=== PATIENT | male | born 1940 | race Caucasian/White ===

== ENCOUNTER 2019-05-05 06:35 | Inpatient (IN) | payer MEDICARE, BC ==
[2019-05-05] MEDS ORDERED: Sodium Chloride 0.9% 10 ML Syringe FLUSH PRN (07:13)
[2019-05-05] MEDS ORDERED: Sodium Chloride 0.9% 1,000 ML IV SCH (07:15)
--- NOTE | 2019-05-05 07:36 | EDM.PDOC ---
ED HPI GENERAL MEDICAL PROBLEM - General Chief Complaint: General Stated Complaint: fall Time Seen by Provider: 05/05/19 06:50 Source of Information: Reports: Patient, EMS Notes Reviewed, Family, RN History Limitations: Reports: Physical Impairment. 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 He lives with his . He has pain to the left ribs and left knee, no LOC, no shortness of breath, no fever, no chest pain. He does take Methotrexate, lisinopril, and carvedilol. He has his cardiology and rheumatology care at [facility]. He was filling up the bird feeders and slipped on some snow in the shop and felt himself falling and shifted so he would fall forward. States he did not hit his head. He was able to crawl and get up with use of the saw horse and then get into a chair with wheels and manuveur to get the phone and call his . He thought he would start feeling better after he rested. He did try some Tramadol last night and became nauseated. states he is dehydrated and hasn't ate very well. He did have Tylenol last night and this am. States no real pain, unless he tries to walk or lift the leg and then the pain is in the knee. No history of hip or knee replacements. He is alert, oriented, [place] and no acute distress. Left Knee Pain Score (Numeric/FACES): 3 - Related Data Allergies Allergy/AdvReac Type Severity Reaction Status Date / Time No Known Allergies Allergy Verified 05/05/19 08:24 Home Meds: Home Meds Calcium Carbonate/Vitamin D3 [Calcium 500 + Vit D Caplet] 600 mg PO DAILY [History] Cholecalciferol (Vitamin D3) [Vitamin D] 2,000 units PO DAILY 02/13/15 [History] Folic Acid 1 mg PO DAILY 02/13/15 [History] Methotrexate 1 gm IM WEEKLY 02/13/15 [History] Zoledronic Acid in Water [Reclast] 5 mg IV ASDIRECTED 02/13/15 [History] Furosemide [Lasix] 40 mg PO DAILY 05/05/19 [History] Umeclidinium Brm/Vilanterol Tr [Anoro Ellipta 62.5-25 MCG] 1 each IH DAILY 05/05 [History] carvediloL [Carvedilol] 3.125 mg PO BID 05/05/19 [History] lisinopriL [Lisinopril] 2.5 mg PO BID 05/05/19 [History] Past Medical History Other HEENT History: right eye articicial lens, cataract left. start of macular degeneration Cardiovascular History: Reports: Pacemaker Respiratory History: Reports: COPD, Other (See Below) Other Respiratory History: beginning emphysema Musculoskeletal History: Reports: Back Pain, Chronic, Other (See Below) Other Musculoskeletal History: right hand 4 joints replaced, rheumatoid arthritis Other Psychiatric History: hxx of ETOH, stopped 41 years ago Endocrine/Metabolic History: Reports: Osteoporosis Hematologic History: Reports: Other (See Below) Other Hematologic History: brusising from medication methotrexate Oncologic (Cancer) History: Reports: None Dermatologic History: Reports: Other (See Below) Other Dermatologic History: bruising reaction from medication (methotrexate) - Past Surgical History Cardiovascular Surgical History: Reports: Pacer Other Endocrine Surgeries/Procedures: Bone density: scheduled for a DEXA scan in one month Other Musculoskeletal Surgeries/Procedures:: fractured pelvis Dermatological Surgical History: Reports: None ED ROS GENERAL - Review of Systems Review Of Systems: See Below Constitutional: Reports: Weakness, Decreased Appetite. Denies: Fever, Chills HEENT: Reports: Hearing Loss. Denies: Ear Pain, Vision Change Respiratory: Denies: Shortness of Breath, Wheezing, Pleuritic Chest Pain Cardiovascular: Denies: Chest Pain, Edema, Lightheadedness GI/Abdominal: Reports: Decreased Appetite. Denies: Abdominal Pain, Diarrhea : Denies: Dysuria, Flank Pain, Incontinence Musculoskeletal: Reports: Other (knee pain and rib pain) Skin: Denies: Rash, Wound Neurological: Reports: Difficulty Walking, Weakness. Denies: Confusion, Headache Psychiatric: Denies: Agitation, Anxiety, Confusion ED EXAM, GENERAL - Physical Exam Exam: See Below Exam Limited By: Physical Impairment General Appearance: Alert, No Apparent Distress Ears: Hearing Loss Nose: Normal Inspection, Normal Mucosa Throat/Mouth: Normal Voice, No Airway Compromise Head: Atraumatic, Normocephalic Neck: Supple, Non-Tender Respiratory/Chest: Decreased Breath Sounds. No: Rhonchi, Wheezing Cardiovascular: Regular Rate, Rhythm, No Edema GI/Abdominal: Normal Bowel Sounds, Soft, Non-Tender Extremities: No Pedal Edema, Limited Range of Motion, Other (left knee pain, left rib pain. Mild swelling to knee, no bruising noted.) Neurological: Alert, Oriented, Normal Cognition Psychiatric: Normal Affect, Normal Mood Skin Exam: Warm, Dry, Normal Color Course - Vital Signs Last Recorded V/S: Last Vital Signs Temp 97.5 F 05/05/19 09:35 Pulse 57 L 05/05/19 09:35 Resp 18 05/05/19 09:35 BP 99/65 05/05/19 09:35 Pulse Ox 91 L 05/05/19 09:35 - Orders/Labs/Meds Orders: Active Orders 24 hr Category Date Time Status Admission Diagnosis [ADT] Routine ADT 05/05/19 09:39 Ordered Patient Status [ADT] Routine ADT 05/05/19 09:41 Active Oxygen Therapy Adult [Oxygen Therapy] [RC] ASDIRECTED Care 05/05/19 07:14 Active Regular Diet [DIET] Diet 05/05/19 Lunch Ordered CULTURE MRSA SURVEY [RM] Stat Lab 05/05/19 09:38 Ordered Calcium Carbonate/Vitamin D3 [Calcium 500 + Vit D Med 05/05/19 20:00 Ordered Caplet] 600 mg PO DAILY Cholecalciferol (Vitamin D3) [Vitamin D3] Med 05/05/19 20:00 Ordered 2,000 unit PO DAILY Folic Acid Med 05/05/19 20:00 Ordered 1 mg PO DAILY Furosemide [Lasix] Med 05/06/19 08:00 Ordered 40 mg PO DAILY Piperacillin/Tazobactam [Zosyn] 4.5 gm Med 05/05/19 09:30 Ordered Sodium Chloride 0.9% [Normal Saline] 100 ml IV Q6H Sodium Chloride 0.9% [Normal Saline] 1,000 ml Med 05/05/19 07:15 Active IV ASDIRECTED Sodium Chloride 0.9% [Saline Flush] Med 05/05/19 07:13 Active 10 ml FLUSH ASDIRECTED PRN Umeclidinium Brm/Vilanterol Tr [Anoro Ellipta 62.5-25 Med 05/05/19 09:30 Ordered MCG] 1 each IH DAILY carvediloL [Coreg] Med 05/05/19 09:30 Ordered 3.125 mg PO BID lisinopriL [Prinivil] Med 05/05/19 09:30 Ordered 2.5 mg PO BID Saline Lock Insert [OM.PC] Routine Oth 05/05/19 07:13 Ordered Code Status [Resuscitation Status] Stat Resus Stat 05/05/19 09:45 Ordered Medication Orders Carvedilol (Coreg) 3.125 mg PO BID [facility] Cholecalciferol (Vitamin D3) 2,000 unit PO DAILY [facility] Folic Acid (Folic Acid) 1 mg PO DAILY [facility] Furosemide (Lasix) 40 mg PO DAILY [facility] Sodium Chloride (Normal Saline) 1,000 mls @ 75 mls/hr IV ASDIRECTED [facility] Last Admin: 05/05/19 07:50 Dose: 75 mls/hr Piperacillin Sod/Tazobactam (Sod 4.5 gm/ Sodium Chloride) 100 mls @ 200 mls/hr IV Q6H [facility] Lisinopril (Prinivil) 2.5 mg PO BID [facility] Non-Formulary Medication (Calcium Carbonate/Vitamin D3 [Calcium 500 + Vit D Caplet]) 600 mg PO DAILY [facility] Non-Formulary Medication (Umeclidinium Brm/Vilanterol Tr [Anoro Ellipta 62.5-25 Mcg]) 1 each IH DAILY [facility] Sodium Chloride (Saline Flush) 10 ml FLUSH ASDIRECTED PRN PRN Reason: Keep Vein Open Labs: Laboratory Tests 05/05/19 05/05/19 05/05/19 Range/Units 07:15 07:15 08:19 WBC 17.3 H D (4.0-11.0) K/uL RBC 4.42 L (4.50-6.50) M/uL Hgb 12.9 L (13.0-18.0) g/dL Hct 37.4 L (40.0-54.0) % MCV 85 (76-96) fL MCH 29.2 (27.0-32.0) pg MCHC 34.5 (31.0-35.0) g/dL RDW 15.0 (11.0-16.0) % Plt Count 89 L D (150-400) K/uL MPV 11.7 H (6.0-10.0) fL Neut % (Auto) 86.5 H (45.0-70.0) % Lymph % (Auto) 2.3 L (20.0-40.0) % [place] % (Auto) 11.1 H (3.0-10.0) % Eos % (Auto) 0.0 L (1.0-5.0) % Baso % (Auto) 0.1 (0.0-0.5) % Neut # (Auto) 14.96 H (2.00-7.50) K/uL Lymph # (Auto) 0.39 L (1.50-4.00) K/uL [place]Brien # (Auto) 1.91 H (0.20-0.80) K/uL Eos # (Auto) 0.00 L (0.04-0.40) K/uL Baso # (Auto) 0.02 (0.02-0.10) K/uL Sodium 130 L (136-145) mmol/L Potassium 4.6 (3.5-5.1) mmol/L Chloride 94 L (98-107) mmol/L Carbon Dioxide 26.0 (21.0-32.0) mmol/L Anion Gap 14.6 (5.0-15.0) mmol/L BUN 22 D (8-26) mg/dL Creatinine 1.38 H D (0.70-1.30) mg/dL Est Cr Clr Drug Dosing 40.47 mL/min Estimated GFR (MDRD) 50 L (>60) MLS/MIN BUN/Creatinine Ratio 15.9 (6-25) Glucose 135 H (74-100) mg/dL Lactic Acid (0.90-1.70) mmol/L Calcium 8.3 L (8.5-10.1) mg/dL Urine Color Yellow Urine Appearance Clear (CLEAR) Urine pH 5.5 (5.0-8.0) Ur Specific [place] 1.020 (1.003-1.030) Urine Protein 30 H (NEGATIVE) mg/dL Urine Glucose (UA) Negative (NEGATIVE) mg/dL Urine Ketones Trace H (NEGATIVE) mg/dL Urine Occult Blood Negative (NEGATIVE) Urine Nitrite Negative (NEGATIVE) Urine Bilirubin Moderate H (NEGATIVE) Urine Urobilinogen 1.0 (0.2-1.0) E.U./dL Ur Leukocyte Esterase Negative (NEGATIVE) Urine RBC Not seen /HPF Urine WBC 0-5 H /HPF Ur Squamous Epith Cells Few /HPF Uric Acid Crystals Few /HPF Urine Bacteria Not seen /HPF 05/05/19 Range/Units 08:45 WBC (4.0-11.0) K/uL RBC (4.50-6.50) M/uL Hgb (13.0-18.0) g/dL Hct (40.0-54.0) % MCV (76-96) fL MCH (27.0-32.0) pg MCHC (31.0-35.0) g/dL RDW (11.0-16.0) % Plt Count (150-400) K/uL MPV (6.0-10.0) fL Neut % (Auto) (45.0-70.0) % Lymph % (Auto) (20.0-40.0) % [place] % (Auto) (3.0-10.0) % Eos % (Auto) (1.0-5.0) % Baso % (Auto) (0.0-0.5) % Neut # (Auto) (2.00-7.50) K/uL Lymph # (Auto) (1.50-4.00) K/uL [place] # (Auto) (0.20-0.80) K/uL Eos # (Auto) (0.04-0.40) K/uL Baso # (Auto) (0.02-0.10) K/uL Sodium (136-145) mmol/L Potassium (3.5-5.1) mmol/L Chloride (98-107) mmol/L Carbon Dioxide (21.0-32.0) mmol/L Anion Gap (5.0-15.0) mmol/L BUN (8-26) mg/dL Creatinine (0.70-1.30) mg/dL Est Cr Clr Drug Dosing mL/min Estimated GFR (MDRD) (>60) MLS/MIN BUN/Creatinine Ratio (6-25) Glucose (74-100) mg/dL Lactic Acid 2.08 H (0.90-1.70) mmol/L Calcium (8.5-10.1) mg/dL Urine Color Urine Appearance (CLEAR) Urine pH (5.0-8.0) Ur Specific [place] (1.003-1.030) Urine Protein (NEGATIVE) mg/dL Urine Glucose (UA) (NEGATIVE) mg/dL Urine Ketones (NEGATIVE) mg/dL Urine Occult Blood (NEGATIVE) Urine Nitrite (NEGATIVE) Urine Bilirubin (NEGATIVE) Urine Urobilinogen (0.2-1.0) E.U./dL Ur Leukocyte Esterase (NEGATIVE) Urine RBC /HPF Urine WBC /HPF Ur Squamous Epith Cells /HPF Uric Acid Crystals /HPF Urine Bacteria /HPF Meds: Medications Generic Name Dose Route Start Last Admin Trade Name Freq PRN Reason Stop Dose Admin Carvedilol 3.125 mg 05/05/19 09:30 Coreg PO BID [facility] Cholecalciferol 2,000 unit 05/05/19 20:00 Vitamin D3 PO DAILY [facility] Folic Acid 1 mg 05/05/19 20:00 Folic Acid PO DAILY [facility] Furosemide 40 mg 05/06/19 08:00 Lasix PO DAILY [facility] Sodium Chloride 1,000 mls @ 75 mls/hr 05/05/19 07:15 05/05/19 07:50 Normal Saline IV 75 mls/hr ASDIRECTED [facility] Administration Piperacillin Sod/Tazobactam 100 mls @ 200 mls/hr 05/05/19 09:30 Sod 4.5 gm/ Sodium Chloride IV Q6H [facility] Lisinopril 2.5 mg 05/05/19 09:30 Prinivil PO BID [facility] Non-Formulary Medication 600 mg 05/05/19 20:00 Calcium Carbonate/Vitamin D3 [Calcium 500 + Vit D Caplet] PO DAILY [facility] Non-Formulary Medication 1 each 05/05/19 09:30 Umeclidinium Brm/Vilanterol Tr [Anoro Ellipta 62.5-25 Mcg] IH DAILY [facility] Sodium Chloride 10 ml 05/05/19 07:13 Saline Flush FLUSH ASDIRECTED PRN Keep Vein Open - Re-Assessments/Exams Free Text/Narrative Re-Assessment/Exam: 05/05/19 09:32 Labs reviewed, Lactic acid is 2.08, WBC 17 and neutr 86%. No fracture noted, radiology read is pending. IV fluids started and Zosyn IV started. Will admit post fall, severe emphysema, No UTI noted, lower respiratory infection, knee strain, CHF and RA. Departure - Departure Time of Disposition: 09:35 Disposition: Admitted As Inpatient 66 Condition: Good Clinical Impression: Lower respiratory infection (e.g., bronchitis, pneumonia, pneumonitis, pulmonitis) - Discharge Information *PRESCRIPTION DRUG MONITORING PROGRAM REVIEWED*: Not Applicable *COPY OF PRESCRIPTION DRUG MONITORING REPORT IN PATIENT MELVINA: Not Applicable Referrals: PCP,None [Primary Care Provider] - Forms: ED Department Discharge Sepsis Event Note - Focused Exam Vital Signs: Vital Signs Temp Pulse Resp BP Pulse Ox 05/05/19 09:35 97.5 F 57 L 18 99/65 91 L 05/05/19 09:10 96.7 F 80 105/56 L 92 L 05/05/19 09:00 53 L 18 97/60 91 L 05/05/19 08:47 97.7 F 81 16 93/63 94 L 05/05/19 08:34 88 18 100/60 95 05/05/19 08:21 53 L 18 102/57 L 92 L 05/05/19 08:16 97.8 F 88 18 99/32 L 91 L 05/05/19 08:14 83 18 99/32 L 90 L 05/05/19 07:39 89 97/66 05/05/19 07:05 91 L 05/05/19 07:01 97.4 F 88 18 95/57 L 89 L 05/05/19 06:48 97.4 F 88 18 95/57 L 83 L Date Exam was Performed: 05/05/19 Time Exam was Performed: 10:40 - Problem List & Annotations (1) Lower respiratory infection (e.g., bronchitis, pneumonia, pneumonitis, pulmonitis) SNOMED Code(s): 58190689 Code(s): J22 - UNSPECIFIED ACUTE LOWER RESPIRATORY INFECTION Status: Acute Current Visit: Yes (2) CHF (congestive heart failure) SNOMED Code(s): 24761006 Code(s): I50.9 - HEART FAILURE, UNSPECIFIED Status: Chronic Current Visit : Yes Qualifiers: Heart failure type: combined systolic and diastolic (3) Rheumatoid arthritis in remission SNOMED Code(s): 804682624467907 Code(s): M06.9 - RHEUMATOID ARTHRITIS, UNSPECIFIED Status: Chronic Current Visit: Yes (4) Emphysema of lung SNOMED Code(s): 23418624 Code(s): J43.9 - EMPHYSEMA, UNSPECIFIED Status: Chronic Current Visit: Yes (5) Effusion, left knee SNOMED Code(s): 636127191526811 Code(s): M25.462 - EFFUSION, LEFT KNEE Status: Acute Current Visit: Yes (6) Osteoporosis SNOMED Code(s): 23653498 Code(s): M81.0 - AGE-RELATED OSTEOPOROSIS W/O CURRENT PATHOLOGICAL FRACTURE Status: Chronic Current Visit: Yes (7) Fall at home SNOMED Code(s): 58259438 Code(s): W19.XXXA - UNSPECIFIED FALL, INITIAL ENCOUNTER; Y92.009 - UNSP PLACE IN UNSP [facility] Status: Acute Current Visit: Yes (8) Rib fracture SNOMED Code(s): 72831008 Code(s): S22.39XA - FRACTURE OF ONE RIB, UNSP SIDE, INIT FOR CLOS FX Status : Acute Current Visit: Yes - Problem List Review Problem List Initiated/Reviewed/Updated: Yes - My Orders Last 24 Hours: My Active Orders 05/05/19 07:13 Sodium Chloride 0.9% [Saline Flush] 10 ml FLUSH ASDIRECTED PRN Saline Lock Insert [OM.PC] Routine 05/05/19 07:14 Oxygen Therapy Adult [Oxygen Therapy] [RC] ASDIRECTED 05/05/19 07:15 Sodium Chloride 0.9% [Normal Saline] 1,000 ml IV ASDIRECTED 05/05/19 09:30 Piperacillin/Tazobactam [Zosyn] 4.5 gm Sodium Chloride 0.9% [Normal Saline] 100 ml IV Q6H Umeclidinium Brm/Vilanterol Tr [Anoro Ellipta 62.5-25 MCG] 1 each IH DAILY carvediloL [Coreg] 3.125 mg PO BID lisinopriL [Prinivil] 2.5 mg PO BID 05/05/19 09:38 CULTURE MRSA SURVEY [RM] Stat 05/05/19 09:39 Admission Diagnosis [ADT] Routine 05/05/19 09:41 Patient Status [ADT] Routine 05/05/19 09:45 Code Status [Resuscitation Status] Stat 05/05/19 20:00 Calcium Carbonate/Vitamin D3 [Calcium 500 + Vit D Caplet] 600 mg PO DAILY Cholecalciferol (Vitamin D3) [Vitamin D3] 2,000 unit PO DAILY Folic Acid 1 mg PO DAILY 05/05/19 Lunch Regular Diet [DIET] 05/06/19 08:00 Furosemide [Lasix] 40 mg PO DAILY - Assessment/Plan Last 24 Hours: My Active Orders 05/05/19 07:13 Sodium Chloride 0.9% [Saline Flush] 10 ml FLUSH ASDIRECTED PRN Saline Lock Insert [OM.PC] Routine 05/05/19 07:14 Oxygen Therapy Adult [Oxygen Therapy] [RC] ASDIRECTED 05/05/19 07:15 Sodium Chloride 0.9% [Normal Saline] 1,000 ml IV ASDIRECTED 05/05/19 09:30 Piperacillin/Tazobactam [Zosyn] 4.5 gm Sodium Chloride 0.9% [Normal Saline] 100 ml IV Q6H Umeclidinium Brm/Vilanterol Tr [Anoro Ellipta 62.5-25 MCG] 1 each IH DAILY carvediloL [Coreg] 3.125 mg PO BID lisinopriL [Prinivil] 2.5 mg PO BID 05/05/19 09:38 CULTURE MRSA SURVEY [RM] Stat 05/05/19 09:39 Admission Diagnosis [ADT] Routine 05/05/19 09:41 Patient Status [ADT] Routine 05/05/19 09:45 Code Status [Resuscitation Status] Stat 05/05/19 20:00 Calcium Carbonate/Vitamin D3 [Calcium 500 + Vit D Caplet] 600 mg PO DAILY Cholecalciferol (Vitamin D3) [Vitamin D3] 2,000 unit PO DAILY Folic Acid 1 mg PO DAILY 05/05/19 Lunch Regular Diet [DIET] 05/06/19 08:00 Furosemide [Lasix] 40 mg PO DAILY Plan: Admit with lower respiratory tract infection, chronic emphysema, chronic RA, chronic CHF with pacer. Will treat with Zosyn q 6 hour, home medication, AARON, VS q 4 hour. Assist with cares as hx of osteoporosis, recent fall and left knee pain and left fifth rib nondisplaced fracture.
[2019-05-05] MEDS ORDERED: Lisinopril 2.5 MG Tab PO SCH (09:30)
[2019-05-05] MEDS ORDERED: Carvedilol 3.125 MG Tab PO SCH (09:30)
[2019-05-05] MEDS ORDERED: Piperacillin/Tazobactam 4.5 GM in Sodium Chloride 0.9% 100 ML IV SCH ×2 (09:30→11:37)
[2019-05-05] MEDS ORDERED: Non-Formulary Medication 1 Each (Umeclidinium Brm/Vilanterol Tr [Anoro Ellipta 62.5-25 Mcg IH SCH (09:30)
--- NOTE | 2019-05-05 10:03 | CR ---
Date of Service: 05/05/19 Clinical Data: fall at home LEFT KNEE: Comparison is made to a prior exam dated 11/2014. There are tricompartment osteoarthritic changes in the knee joint with narrowing of the medial and lateral compartment joint spaces. There is a moderate size joint effusion. No acute abnormalities. There are vascular calcifications in the soft tissues. [id number] MTDD
--- NOTE | 2019-05-05 10:08 | CR ---
Date of Service: 05/05/19 Clinical Data: fall at home, pain to ribs AP CHEST AND LEFT RIBS: Comparison made to a prior chest x-ray dated 02/2015. The cardiac pacer and pacer wires remain unchanged in position. The heart size is within normal limits. The aorta is calcified and ectatic. There are interstitial infiltrates throughout both lungs with progression from the prior exam. There are atelectatic/fibrotic changes in both lung bases. No pneumothorax. No pleural effusions. There are multiple healed rib fractures on the right. No acute displaced left rib fractures. There is degenerative disk disease throughout the thoracic spine. Left fifth rib anterior suspicious for a nondisplaced fracture. [id number] [facility]
[2019-05-05] MEDS ORDERED: Ondansetron 4 MG/2 ML SDV IVPUSH PRN (14:06)
[2019-05-05] MEDS ORDERED: Azithromycin 500 MG in Sodium Chloride 0.9% 250 ML IV SCH (15:00)
[2019-05-05] MEDS ORDERED: cefTRIAXone 1 GM in Sodium Chloride 0.9% 50 ML IV SCH (15:15)
[2019-05-05 16:06] VITALS: BP 118/77; PULSE 87
[2019-05-05] MEDS ORDERED: Azithromycin 500 MG Vial ONE (16:32)
--- NOTE | 2019-05-05 17:10 | PCM.DCSUM1 ---
Discharge Summary - Hospital Course HPI Initial Comments: 78 yo male fell at home last night and presented to ER today per EMS as he couldn't get up from the chair. X-rays completed and labs, no fracture to left knee, nondisplace left 5th rib fracture and lower respiratory infiltrates, with hx of emphysema, hx of CHF, Hx of RA and dual pacemaker. Pt receives his care at [facility] in [place] and minimal records at this facility. Pt was admitted to this facility, had an episode of nausea and loose BM and hypotension. EKG with possible septal infarct and elevated troponin. Notified of change in pt condition and elevation of labs. would like to have pt transferred to [facility]. Contact with one call [facility] and discussion with Dr Espinoza, cardiology and hospitalist and accepting pt for transfer. Pt does receive cardiology, PCP and hospital intern visits at [facility]. Diagnosis: Stroke: No - Discharge Data Discharge Date: 05/05/19 Discharge Disposition: DC/Tfer to Other 70 Condition: Good - Referral to Home Health Primary Care Physician: PCP None - Discharge Diagnosis/Problem(s) (1) Lower respiratory infection (e.g., bronchitis, pneumonia, pneumonitis, pulmonitis) SNOMED Code(s): 54919120 ICD Code: J22 - UNSPECIFIED ACUTE LOWER RESPIRATORY INFECTION Status: Acute Current Visit: Yes (2) CHF (congestive heart failure) SNOMED Code(s): 23899235 ICD Code: I50.9 - HEART FAILURE, UNSPECIFIED Status: Chronic Current Visit: Yes Qualifiers: Heart failure type: combined systolic and diastolic (3) Rheumatoid arthritis in remission SNOMED Code(s): 888041166471221 ICD Code: M06.9 - RHEUMATOID ARTHRITIS, UNSPECIFIED Status: Chronic Current Visit: Yes (4) Emphysema of lung SNOMED Code(s): 46108272 ICD Code: J43.9 - EMPHYSEMA, UNSPECIFIED Status: Chronic Current Visit: Yes (5) Effusion, left knee SNOMED Code(s): 542256080043927 ICD Code: M25.462 - EFFUSION, LEFT KNEE Status: Acute Current Visit: Yes (6) Osteoporosis SNOMED Code(s): 52215223 ICD Code: M81.0 - AGE-RELATED OSTEOPOROSIS W/O CURRENT PATHOLOGICAL FRACTURE Status: Chronic Current Visit: Yes (7) Fall at home SNOMED Code(s): 24151891 ICD Code: W19.XXXA - UNSPECIFIED FALL, INITIAL ENCOUNTER; Y92.009 - UNSP PLACE IN UNSP NON-INSTITUT (PRIVATE) RESIDENCE PLACE Status: Acute Current Visit: Yes (8) Rib fracture SNOMED Code(s): 59978163 ICD Code: S22.39XA - FRACTURE OF ONE RIB, UNSP SIDE, INIT FOR CLOS FX Status: Acute Current Visit: Yes (9) ACS (acute coronary syndrome) SNOMED Code(s): 841481613 ICD Code: I24.9 - ACUTE ISCHEMIC HEART DISEASE, UNSPECIFIED Status: Acute Current Visit: Yes - Discharge Plan *PRESCRIPTION DRUG MONITORING PROGRAM REVIEWED*: Not Applicable *COPY OF PRESCRIPTION DRUG MONITORING REPORT IN PATIENT MELVINA: Not Applicable Home Medications: Home Meds Calcium Carbonate/Vitamin D3 [Calcium 500 + Vit D Caplet] 600 mg PO DAILY [History] Cholecalciferol (Vitamin D3) [Vitamin D] 2,000 units PO DAILY 02/13/15 [History] Folic Acid 1 mg PO DAILY 02/13/15 [History] Methotrexate 1 gm IM WEEKLY 02/13/15 [History] Zoledronic Acid in Water [Reclast] 5 mg IV ASDIRECTED 02/13/15 [History] Furosemide [Lasix] 40 mg PO DAILY 05/05/19 [History] Umeclidinium Brm/Vilanterol Tr [Anoro Ellipta 62.5-25 MCG] 1 each IH DAILY 05/05 [History] carvediloL [Carvedilol] 3.125 mg PO BID 05/05/19 [History] lisinopriL [Lisinopril] 2.5 mg PO BID 05/05/19 [History] Oxygen Therapy Mode: Nasal Cannula Forms: ED Department Discharge Referrals: PCP,None [Primary Care Provider] - - Discharge Summary/Plan Comment DC Time >30 min.: Yes Discharge Summary/Plan Comment: Counseled on ACS and change in Troponin and EKG change with possible septal infarct. Pt is alert, no acute distress, having some shortness of breath and oxygen per N/C with 2-3 lpm, campus monitor, no chest pain at this time. Acute lower respiratory infection, with elevated WBC and elevated lactic, Dual pace maker, hx of emphysema, RA, osteoporosis, and CHF. Will transfer to [facility] for hospitalist and cardiology. - General Info Date of Service: 05/05/19 Functional Status: Reports: Pain Controlled, Tolerating Diet, Urinating, Incentive Spirometry. Denies: Ambulating - Review of Systems General: Reports: Weakness. Denies: Fever, Chills HEENT: Denies: Headaches, Sore Throat, Visual Changes Pulmonary: Reports: Shortness of Breath. Denies: Cough, Sputum Cardiovascular: Reports: Dyspnea on Exertion. Denies: Chest Pain, Edema Gastrointestinal: Reports: Decreased Appetite, Nausea. Denies: Abdominal Pain Genitourinary: Reports: No Symptoms Musculoskeletal: Reports: Other (RA, osteoporosis, left knee pain, left rib pain ) Skin: Reports: No Symptoms Neurological: Reports: No Symptoms Psychiatric: Reports: No Symptoms - Patient Data Vitals - Most Recent: Last Vital Signs Temp 98.6 F 05/05/19 16:00 Pulse 87 05/05/19 16:00 Resp 16 05/05/19 16:00 BP 118/77 05/05/19 16:00 Pulse Ox 91 L 05/05/19 09:35 Weight - Most Recent: 143 lb Lab Results - Last 24 hrs: Laboratory Results - last 24 hr 05/05/19 05/05/19 05/05/19 Range/Units 07:15 07:15 08:19 WBC 17.3 H D (4.0-11.0) K/uL RBC 4.42 L (4.50-6.50) M/uL Hgb 12.9 L (13.0-18.0) g/dL Hct 37.4 L (40.0-54.0) % MCV 85 (76-96) fL MCH 29.2 (27.0-32.0) pg MCHC 34.5 (31.0-35.0) g/dL RDW 15.0 (11.0-16.0) % Plt Count 89 L D (150-400) K/uL MPV 11.7 H (6.0-10.0) fL Neut % (Auto) 86.5 H (45.0-70.0) % Lymph % (Auto) 2.3 L (20.0-40.0) % [place] % (Auto) 11.1 H (3.0-10.0) % Eos % (Auto) 0.0 L (1.0-5.0) % Baso % (Auto) 0.1 (0.0-0.5) % Neut # (Auto) 14.96 H (2.00-7.50) K/uL Lymph # (Auto) 0.39 L (1.50-4.00) K/uL [place] # (Auto) 1.91 H (0.20-0.80) K/uL Eos # (Auto) 0.00 L (0.04-0.40) K/uL Baso # (Auto) 0.02 (0.02-0.10) K/uL Sodium 130 L (136-145) mmol/L Potassium 4.6 (3.5-5.1) mmol/L Chloride 94 L (98-107) mmol/L Carbon Dioxide 26.0 (21.0-32.0) mmol/L Anion Gap 14.6 (5.0-15.0) mmol/L BUN 22 D (8-26) mg/dL Creatinine 1.38 H D (0.70-1.30) mg/dL Est Cr Clr Drug Dosing 40.47 mL/min Estimated GFR (MDRD) 50 L (>60) MLS/MIN BUN/Creatinine Ratio 15.9 (6-25) Glucose 135 H (74-100) mg/dL Lactic Acid (0.90-1.70) mmol/L Calcium 8.3 L (8.5-10.1) mg/dL Troponin I (0.000-0.060) ng/mL Urine Color Yellow Urine Appearance Clear (CLEAR) Urine pH 5.5 (5.0-8.0) Ur Specific Morgan 1.020 (1.003-1.030) Urine Protein 30 H (NEGATIVE) mg/dL Urine Glucose (UA) Negative (NEGATIVE) mg/dL Urine Ketones Trace H (NEGATIVE) mg/dL Urine Occult Blood Negative (NEGATIVE) Urine Nitrite Negative (NEGATIVE) Urine Bilirubin Moderate H (NEGATIVE) Urine Urobilinogen 1.0 (0.2-1.0) E.U./dL Ur Leukocyte Esterase Negative (NEGATIVE) Urine RBC Not seen /HPF Urine WBC 0-5 H /HPF Ur Squamous Epith Cells Few /HPF Uric Acid Crystals Few /HPF Urine Bacteria Not seen /HPF 05/05/19 05/05/19 Range/Units 08:45 14:45 WBC (4.0-11.0) K/uL RBC (4.50-6.50) M/uL Hgb (13.0-18.0) g/dL Hct (40.0-54.0) % MCV (76-96) fL MCH (27.0-32.0) pg MCHC (31.0-35.0) g/dL RDW (11.0-16.0) % Plt Count (150-400) K/uL MPV (6.0-10.0) fL Neut % (Auto) (45.0-70.0) % Lymph % (Auto) (20.0-40.0) % [place] % (Auto) (3.0-10.0) % Eos % (Auto) (1.0-5.0) % Baso % (Auto) (0.0-0.5) % Neut # (Auto) (2.00-7.50) K/uL Lymph # (Auto) (1.50-4.00) K/uL [place] # (Auto) (0.20-0.80) K/uL Eos # (Auto) (0.04-0.40) K/uL Baso # (Auto) (0.02-0.10) K/uL Sodium (136-145) mmol/L Potassium (3.5-5.1) mmol/L Chloride (98-107) mmol/L Carbon Dioxide (21.0-32.0) mmol/L Anion Gap (5.0-15.0) mmol/L BUN (8-26) mg/dL Creatinine (0.70-1.30) mg/dL Est Cr Clr Drug Dosing mL/min Estimated GFR (MDRD) (>60) MLS/MIN BUN/Creatinine Ratio (6-25) Glucose (74-100) mg/dL Lactic Acid 2.08 H (0.90-1.70) mmol/L Calcium (8.5-10.1) mg/dL Troponin I 0.095 H* (0.000-0.060) ng/mL Urine Color Urine Appearance (CLEAR) Urine pH (5.0-8.0) Ur Specific Morgan (1.003-1.030) Urine Protein (NEGATIVE) mg/dL Urine Glucose (UA) (NEGATIVE) mg/dL Urine Ketones (NEGATIVE) mg/dL Urine Occult Blood (NEGATIVE) Urine Nitrite (NEGATIVE) Urine Bilirubin (NEGATIVE) Urine Urobilinogen (0.2-1.0) E.U./dL Ur Leukocyte Esterase (NEGATIVE) Urine RBC /HPF Urine WBC /HPF Ur Squamous Epith Cells /HPF Uric Acid Crystals /HPF Urine Bacteria /HPF SONG Results - Last 24 hrs: Microbiology 05/05/19 14:45 Influenza Type A Antigen Screen - Final Nasal, Unspecified NEGATIVE INFLUENZA A VIRUS AG REFERENCE RANGE: NEGATIVE Influenza Type B Antigen Screen - Final NEGATIVE INFLUENZA B VIRUS AG REFERENCE RANGE: NEGATIVE Med Orders - Current: Current Medications Calcium Carbonate (Caltrate 600+D 1500 Mg-400 Units) 1 tab PO DAILY [facility] Carvedilol (Coreg) 3.125 mg PO BID [facility] Last Admin: 05/05/19 12:04 Dose: Not Given Cholecalciferol (Vitamin D3) 2,000 unit PO DAILY [facility] Folic Acid (Folic Acid) 1 mg PO DAILY [facility] Furosemide (Lasix) 40 mg PO DAILY [facility] Sodium Chloride (Normal Saline) 1,000 mls @ 75 mls/hr IV ASDIRECTED [facility] Last Admin: 05/05/19 07:50 Dose: 75 mls/hr Ceftriaxone Sodium 1 gm/ (Sodium Chloride) 50 mls @ 100 mls/hr IV Q24H [facility] Stop: 05/09/19 23:59 Last Admin: 05/05/19 16:38 Dose: 100 mls/hr Azithromycin 500 mg/ Sodium (Chloride) 250 mls @ 250 mls/hr IV DAILY@1500 [facility] Lisinopril (Prinivil) 2.5 mg PO BID [facility] Last Admin: 05/05/19 12:05 Dose: Not Given Non-Formulary Medication (Umeclidinium Brm/Vilanterol Tr [Anoro Ellipta 62.5-25 Mcg]) 1 each IH DAILY [facility] Last Admin: 05/05/19 14:46 Dose: Not Given Ondansetron HCl (Zofran) 4 mg IVPUSH Q8H PRN PRN Reason: Nausea/Vomiting Last Admin: 05/05/19 14:11 Dose: 4 mg Sodium Chloride (Saline Flush) 10 ml FLUSH ASDIRECTED PRN PRN Reason: Keep Vein Open Discontinued Medications Azithromycin (Zithromax) Confirm Administered Dose 500 mg .ROUTE .STK-MED ONE Stop: 05/05/19 16:33 Piperacillin Sod/Tazobactam (Sod 4.5 gm/ Sodium Chloride) 100 mls @ 200 mls/hr IV Q6H [facility] Piperacillin Sod/Tazobactam (Sod 4.5 gm/ Sodium Chloride) 100 mls @ 200 mls/hr IV Q6H [facility] Last Admin: 05/05/19 12:03 Dose: 200 mls/hr - Exam Quality Assessment: Reports: Supplemental Oxygen General: Reports: Alert, Oriented, Cooperative, No Acute Distress HEENT: Reports: Pupils Reactive, Mucous Membr. Moist/[place] Neck: Reports: Supple, Trachea Midline Lungs: Reports: Normal Respiratory Effort, Decreased Breath Sounds, Rhonchi Cardiovascular: Reports: Irregular Rhythm GI/Abdominal Exam: Normal Bowel Sounds, Soft, Non-Tender Extremities: Limited Range of Motion, Other (severe RA) Skin: Reports: Warm, Dry, Intact Neurological: Reports: No New Focal Deficit Psy/Mental Status: Reports: Alert, Normal Affect, Normal Mood
[2019-05-05] MEDS ORDERED: Acetaminophen 325 MG Tab PO PRN (17:46)
[2019-05-05] MEDS ORDERED: Non-Formulary Medication 1 Each (Calcium Carbonate/Vitamin D3 [Calcium 500 + Vit D Caplet] PO SCH (20:00)
[2019-05-05] MEDS ORDERED: Folic Acid 1 MG Tab PO SCH (20:00)
[2019-05-05] MEDS ORDERED: Cholecalciferol (Vitamin D3) 2,000 Unit Cap PO SCH (20:00)
[2019-05-06] MEDS ORDERED: Calcium Carbonate/Vitamin D3 1500 MG-400 Units Tab PO SCH (08:00)
[2019-05-06] MEDS ORDERED: Furosemide 40 MG Tab PO SCH (08:00)
== END 2019-05-05 17:55 | DRG 206 ==
LOC: LB.ED 06:35 → LB.MS 09:41
PROVIDERS: ADMIT Nurse Practitioner Family; ATTEND Nurse Practitioner Family
DX: S22.32XA Fracture of one rib, left side, initial encounter for closed fracture (principal); I24.9 Acute ischemic heart disease, unspecified; S83.92XA Sprain of unspecified site of left knee, initial encounter; I50.42 Chronic combined systolic (congestive) and diastolic (congestive) heart failure; J22 Unspecified acute lower respiratory infection; S22.39XA Fracture of one rib, unspecified side, initial encounter for closed fracture; M06.9 Rheumatoid arthritis, unspecified; I50.9 Heart failure, unspecified; J43.9 Emphysema, unspecified; I95.9 Hypotension, unspecified; M25.462 Effusion, left knee; M81.0 Age-related osteoporosis without current pathological fracture; F10.21 Alcohol dependence, in remission; H26.9 Unspecified cataract; W19.XXXA Unspecified fall, initial encounter; Z79.899 Other long term (current) drug therapy; H35.30 Unspecified macular degeneration; Z95.0 Presence of cardiac pacemaker; G89.29 Other chronic pain; M54.9 Dorsalgia, unspecified
CPT/HCPCS: 36415; 71101-LT; 73560-LT; 80048; 81001; 83605; 84484; 85025; 87040; 87804; 87804-59; 93005; 96360; 96361; 99285-25; A0425; A0429; A9270-GY; J0456; J0696; J2405; J2543; J7030; J7050

== ENCOUNTER 2020-03-05 18:51 | Emergency (ER) | payer MEDICARE, BC ==
[2020-03-05] MEDS: HYDROmorphone 4 MG/ML Syringe SUBCUT ONE (19:45)
[2020-03-05 20:38] VITALS: BP 117/51; PULSE 79
[2020-03-05] MEDS: Ondansetron 4 MG/2 ML SDV ONE (21:27)
[2020-03-05] MEDS: HYDROmorphone 2 MG/ML SDV IVPUSH ONE (21:53)
[2020-03-05] MEDS: Sodium Chloride 0.9% 1,000 ML IV SCH (21:54)
[2020-03-05] MEDS: Ondansetron 4 MG/2 ML SDV IVPUSH ONE (21:54)
--- NOTE | 2020-03-06 03:03 | ER ---
HISTORY OF PRESENT ILLNESS: 79-year-old male who comes in by ambulance after he fell at home. The patient was using his walker. He was helping his cook supper. As he was turning the walker, he lost his balance and fell. He was not having any problems with chest pain, coughing, or shortness of breath. He states he just lost his balance. He states he was feeling fine before. The patient was unable to get up and ambulance was called. Ambulance crew states that there was an abnormal appearance to the left lateral hip, this is one of the areas the patient is complaining of pain, the left elbow is the other. There has not been any bleeding and the patient denies any problems with breathing, chest pain, nausea, or vomiting. PAST MEDICAL HISTORY: Includes: 1. Severe rheumatoid arthritis. 2. Osteoporosis. 3. History of emphysema. 4. CHF. 5. Acute coronary artery syndrome. OBJECTIVE: GENERAL APPEARANCE: The patient is awake and alert. No respiratory distress. He is uncomfortable because of pain that he rates at 10/10 with any movement of either his elbow or his left leg. VITAL SIGNS: Reviewed. Blood pressure initially 143/81, he is afebrile, pulse 64, O2 sats 94%. MUSCULOSKELETAL: Examining the left thigh and hip area reveals an abnormal appearance with some swelling on the lateral side involving the greater trochanter area and distally down to about one-third of the way to the knee. Skin is intact. There is no redness and this entire area is painful with even minimal movement of the patient's leg. Examining the left elbow reveals arthritic changes to the elbow area. Skin is intact. He claims of diffuse pain with any kind of movement of the elbow as well. INITIAL TREATMENT: Dilaudid 1 mg was given subcu for pain control. This did provide fairly good pain relief within about 15 to 20 minutes. X-rays were obtained showing a distal humeral fracture that appears to radiate down into the central portion of the elbow. Hip x- ray shows a subtrochanteric left hip fracture with some displacement noted. DIAGNOSES: 1. Left hip fracture. 2. Left distal humerus fracture. TREATMENT PLAN: I did consult with the [facility] in [place], initially talking to Ortho, Dr. Molina, Questionable spelling. He initially accepted the care for the patient pending the hospitalist review and next consulted with the hospitalist Dr. Milligan, who accepted the patient. He will be transferred by ambulance. An EKG was obtained, but the patient has a pacemaker and was unable to hold still there for the quality was not good with artifact noted. A COVID test was also done and is pending. An IV will be started with normal saline started at 75 mL an hour. The patient will be given another dose of Dilaudid 0.5 mg IV and Zofran 4 mg IV before leaving our facility. CONDITION ON DISCHARGE: Stable. CRS/MODL /[id number] MTDD
--- NOTE | 2020-03-06 08:39 | CR ---
DATE OF SERVICE: 03/05/20 CLINICAL DATA: Fall. LEFT HIP: There is a displaced fracture through the proximal femur that extends through the lesser trochanter. There is deformity. No other acute abnormalities. [id number] [facility]
--- NOTE | 2020-03-06 08:42 | CR ---
DATE OF SERVICE: 03/05/20 CLINICAL DATA: fall. LEFT ELBOW: There is an oblique displaced fracture through the distal metaphysis and trochlea of the distal humerus. There are positive anterior and posterior fat pad signs consistent with a joint effusion or hemarthrosis. No other acute abnormality. [id number] [facility]
== END 2020-03-05 21:50 ==
LOC: LB.ED 18:51
DX: S42.492A Other displaced fracture of lower end of left humerus, initial encounter for closed fracture (principal); S72.122A Displaced fracture of lesser trochanter of left femur, initial encounter for closed fracture; I50.9 Heart failure, unspecified; J43.9 Emphysema, unspecified; I25.10 Atherosclerotic heart disease of native coronary artery without angina pectoris; W19.XXXA Unspecified fall, initial encounter; Y92.009 Unspecified place in unspecified non-institutional (private) residence as the place of occurrence of the external cause
CPT/HCPCS: 73070-LT; 73502-LT; 93005; 96372; 96374; 96375; 99285-25; J1170; J2405; J7030; U0002